=== PATIENT | male | born 1950 | race Caucasian/White ===

== ENCOUNTER → 2019-01-14 | Outpatient (CLI) | payer MEDICARE ==
[~2019-01-14] MED LIST: FOLIC ACID; LIPITOR40 MG; TRIAMCINOLONE A15 G1 TP
== END ==
LOC: M.CT 11:38
DX: E11.9 Type 2 diabetes mellitus without complications (principal); I42.2 Other hypertrophic cardiomyopathy; E83.42 Hypomagnesemia; E78.00 Pure hypercholesterolemia, unspecified; I70.0 Atherosclerosis of aorta; J98.4 Other disorders of lung; I51.7 Cardiomegaly